=== PATIENT | female | born 1960 | race Two or more races ===

== ENCOUNTER 2017-04-30 13:05 | Emergency (ER) | payer OTHER ==
[2017-04-30 13:17] VITALS: BP 152/92; PULSE 94; TEMP 98.5; BMI 25.9
[2017-04-30] MEDS ORDERED: ALBUTEROL SO4 0.083% IH SOL 2.5 MG/3 ML VIAL.NEB. NEB ONE ×2 (13:47→13:53)
--- NOTE | 2017-04-30 13:53 | PDOC ---
History of Present Illness - General Chief Complaint: Cold Symptoms Stated Complaint: CONGESTED, SOB Time Seen by Provider: 04/30/17 13:36 History Source: Patient Exam Limitations: No Limitations - History of Present Illness Initial Comments: 04/30/17 13:48 56 yr female with cough for 3 weeks. no fever no chills no foreign travel no sick contacts at home history of HTN will give albuterol and get CXR Past History - Past Medical History Allergies/Adverse Reactions: Allergies Allergy/AdvReac Type Severity Reaction Status Date / Time No Known Allergies Allergy Verified 04/30/17 13:17 Home Medications: Ambulatory Orders Albuterol Sulfate Inhaler - [Ventolin HFA Inhaler -] 1 - 2 inh PO Q4H PRN #1 inhaler 04/30/17 Benzonatate [Tessalon Pearls -] 100 mg PO TID #21 capsule 04/30/17 Fluticasone Prop 0.05% Nasal [Flonase -] 1 - 2 spray NS DAILY #1 spray.pump 05/17 Guaifenesin Dm [Robitussin Dm] 10 ml PO Q8H 04/30/17 COPD: No HTN: Yes - Suicide/Smoking/Psychosocial Hx Smoking History: Never smoked Have you smoked in the past 12 months: No Information on smoking cessation initiated: No Hx Alcohol Use: No Drug/Substance Use Hx: No Substance Use Type: None *Physical Exam - Vital Signs Last Vital Signs Temp Pulse Resp BP Pulse Ox 98.5 F 94 H 20 152/92 98 04/30/17 13:11 04/30/17 13:11 04/30/17 13:11 04/30/17 13:11 04/30/17 13:11 - Physical Exam General Appearance: Yes: Nourished, Appropriately Dressed HEENT: positive: EOMI, JACKELYN, Normal ENT Inspection, TMs Normal Neck: positive: Supple. negative: Tender, Lymphadenopathy (R), Lymphadenopathy (L) Respiratory/Chest: positive: Lungs Clear. negative: Chest Tender, Crackles, Rales, Rhonchi, Stridor, Wheezing Cardiovascular: positive: Regular Rhythm, Regular Rate Gastrointestinal/Abdominal: positive: Normal Bowel Sounds, Soft Musculoskeletal: positive: Normal Inspection Extremity: positive: Normal Capillary Refill, Normal Inspection, Normal Range of Motion Integumentary: positive: Normal Color, Dry, Warm Neurologic: positive: video engineer II-XII NML intact, Fully Oriented, Alert, Normal Mood/ Affect, Normal Response, Motor Strength 09/01 ED Treatment Course - RADIOLOGY Radiology Studies Ordered: Category Date Time Status CHEST PA & LAT [RAD] Stat Radiology 04/30/17 13:47 Ordered Medical Decision Making - Medical Decision Making 04/30/17 14:48 cc: cough for 3 weeks not improving with OTC meds states fever last night with headache took robitussin last night will get CXR, give albuterol neb now for coughing pt is with stable vitals no distress, speaking clearly full sentences *DC/Admit/Observation/Transfer Diagnosis at time of Disposition: Bronchitis - Discharge Dispostion Disposition: HOME Condition at time of disposition: Good - Prescriptions Prescriptions: Albuterol Sulfate Inhaler - [Ventolin HFA Inhaler -] 1 - 2 inh PO Q4H PRN #1 inhaler PRN Reason: Cough Benzonatate [Tessalon Pearls -] 100 mg PO TID #21 capsule Fluticasone Prop 0.05% Nasal [Flonase -] 1 - 2 spray NS DAILY #1 spray.pump - Referrals Referrals: Obdulia Moffett MD [Primary Care Provider] - - Patient Instructions Printed Discharge Instructions: DI for Acute Bronchitis Additional Instructions: chest xray was normal no pneumonia drink pleanty of fluids to stay hydrated take the mediations as prescribed for cough and for any nasal congestion or drip in the back of the throat please follow with your doctor tomorrow for follow up bring the xray report with you return to ER for any worsening symptoms - Post Discharge Activity
== END 2017-04-30 14:56 | disposition home or self-care (01) ==
LOC: JERFT 13:05
PROC: 3E0F7GC Introduction of Other Therapeutic Substance into Respiratory Tract, Via Natural or Artificial Opening (ICD-10-PCS; principal; 2017-04-30)
DX: J40 Bronchitis, not specified as acute or chronic (principal); I10 Essential (primary) hypertension
CPT/HCPCS: 71046-TC; 94640; 99281-25